=== PATIENT | male | born 1955 ===

== ENCOUNTER 2022-02-02 08:45 | Outpatient (CLI) | payer MEDICARE | END 2022-02-02 08:46 | disposition home or self-care (01) | LOC: PET 08:45 | PROVIDERS: ATTEND Internal Medicine Critical Care Medicine | DX: R91.8 Other nonspecific abnormal finding of lung field (principal); C34.11 Malignant neoplasm of upper lobe, right bronchus or lung | CPT/HCPCS: 78815; A9552 ==